=== PATIENT | female | born 1950 | race Caucasian/White ===

== ENCOUNTER 2019-12-06 18:55 | Observation (INO) ==
[2019-12-06] MEDS ORDERED: SODIUM CHLORIDE 0.9% 500 ML IV SCH (20:15)
--- NOTE | 2019-12-06 20:20 | Emergency Department Note ---
ED Visit Note I assisted Dr. Edwards in the care of this patient. Please see attending attestation. Alec Sarabia DO Resident, Family & Community Medicine, [facility] . Resident Activity Tracking Resident Involvement: Resident Care Provided Care Provided: Adult ED
[2019-12-06 20:49] LABS: Basophils # (auto) 0.01 K/uL (0-0.2); Basophils % (auto) 0.1 %; Eosinophils # (auto) 0.12 K/uL (0-0.5); Eosinophils % (auto) 1.8 %; Hemoglobin 15.2 g/dL (12.0-16.0); Immature Granulocytes # (auto) 0.01 K/uL (0.00-0.02); Immature Granulocytes % (auto) 0.1 %; Lymphocytes % (auto) 24.9 %; Mean Corpuscular Hemoglobin 31.3 pg (25-34); Mean Corpuscular Hgb Conc 33.8 g/dL (32-36); Mean Corpuscular Volume 92.6 fL (80-100); Mean Platelet Volume 10.6 fL (7.4-10.4); Monocytes # (auto) 0.49 K/uL (0.11-0.59); Monocytes % (auto) 7.2 %; Neutrophils # (auto) 4.51 K/uL (1.4-6.5); Neutrophils % (auto) 65.9 %; Platelet Count 195 K/uL (130-400); RDW Standard Deviation 47.6 fL (36.4-46.3); Red Blood Count 4.86 M/uL (4.2-5.4); White Blood Count 6.84 K/uL (4.8-10.8)
[2019-12-06 20:49] LABS: iSTAT Creatinine 1.2 mg/dl (0.6-1.3); iSTAT Hemoglobin 16.3 g/dl (12.0-16.0); iSTAT Ionized Calcium 1.17 mmol/l (1.12-1.32); iSTAT Potassium 3.9 mmol/L (3.3-5.0)
--- NOTE | 2019-12-06 20:59 | XRay Report ---
XR chest 1V portable HISTORY: 69 years-old Female Chest Pain acute atypical chest pain COMPARISON: None TECHNIQUE: Portable AP view of the chest FINDINGS: Cardiomediastinal and hilar silhouettes are within normal limits. Minimal linear left lung base atele ctasis/scarring. There is no pneumothorax, pleural effusion, airspace consolidation or overt pulmonar y edema. Bones of the chest appear grossly intact. Degenerative changes of the shoulders and spine. IMPRESSION: No acute process. ACT 112: Negative or not required by law. The above report was generated using voice recognition software. It may contain grammatical, syntax o r spelling errors. Electronically signed by: Prabhu Khan M.D. 12/06/2019 8:58 PM
[2019-12-06 21:01] LABS: Partial Thromboplastin Ratio 0.9; Partial Thromboplastin Time 25.2 Seconds (21.0-31.0)
[2019-12-06 21:06] LABS: Alanine Aminotransferase 41 U/L (12-78); Albumin Level 4.1 gm/dl (3.4-5.0); Aspartate Aminotransferase 33 U/L (15-37); BUN Creatinine Ratio 21.2 (10-20); Blood Urea Nitrogen 28 mg/dl (7-18); Calcium 9.4 mg/dl (8.5-10.1); Carbon Dioxide 24 mmol/L (21-32); Chloride 105 mmol/L (98-107); Creatinine Clr Calc Pharmacy 47.6 ml/min; Est GFR (African American) 47.4; Est GFR (Non-African American) 40.9; Glucose 122 mg/dl (70-99); Potassium 3.8 mmol/L (3.5-5.1); Sodium 139 mmol/L (136-145)
[2019-12-06 21:11] LABS: Alkaline Phosphatase 163 U/L (45-117); Bilirubin,Total 0.4 mg/dl (0.2-1); Globulin 4.1 gm/dl (2.5-4.0); Total Protein 8.2 gm/dl (6.4-8.2); Troponin I < 0.015 ng/ml (0-0.045)
[2019-12-06] MEDS ORDERED: OPTIRAY 320 125ml IV PRN (21:26)
--- NOTE | 2019-12-06 21:41 | CT Scan Report ---
CT head/brain wo con CLINICAL HISTORY: 69 years-old Female with visual disturbance. Acute visual disturbance TECHNIQUE: Multiple axial CT images of the head were obtained without contrast. A dose lowering tech nique was utilized adhering to the principles of ALARA. COMPARISON: CTA head and neck of same day. FINDINGS: No acute intracranial hemorrhage, midline shift, intracranial mass, hydrocephalus, territorial ischem ia or abnormal extra-axial collection. Senescent calcifications of the lentiform nuclei. Mild patchy white matter hypodensities suggest chronic microvascular ischemic changes. The calvarium is intact. The paranasal sinuses, mastoid air cells, and middle ear cavities are clear . IMPRESSION: No acute intracranial abnormality. ACT 112: Negative or not required by law. The above report was generated using voice recognition software. It may contain grammatical, syntax o r spelling errors. Electronically signed by: Prabhu Khan M.D. 12/06/2019 9:40 PM
--- NOTE | 2019-12-06 21:49 | CT Scan Report ---
CT angio neck with con, CT angio head w con CLINICAL HISTORY: 69 years-old Female with visual disturbance. Acute visual disturbance COMPARISON STUDY: Head CT of same day TECHNIQUE: Following the IV administration of 119 mL of Optiray 320, CT angiogram of the head and nec k was performed from the aortic arch to the skull base. Images are reviewed in the axial, sagittal, a nd coronal planes. 3-D MIPS images are created and assessed. IV contrast was administered without com plication. All measurements were calculated based on NASCET criteria. A dose lowering technique was utilized adhering to the principles of ALARA. CT DOSE: 1608.08 mGy.cm FINDINGS: The imaged opacified pulmonary arterial tree is unremarkable. Mild calcified plaque of the thoracic a ortic arch. Patency of the imaged bilateral subclavian arteries. The innominate and common carotid ar teries are patent. Mild mixed plaque of the carotid bulbs results in less than 50% luminal narrowing. The internal carotid arteries are patent. The middle and anterior cerebral arteries are patent. Dimi nutive right A1 segment is likely developmental. Anterior communicating artery appears normal. Patent and codominant vertebral arteries. There is approximately 50% luminal narrowing involving the proxim al cervical segments of the bilateral internal carotid arteries on image 137 series 6 which appear to be compressed from the adjacent musculature. There is tortuosity and kinking noted involving the dis jim left V2 segment, image 257 series 6 at the level of C2. Patent basilar artery. origin of th e right posterior cerebral artery. No aneurysm, dissection, high-grade stenosis or proximal branch oc clusion. Cerebral venous sinuses appear patent. No abnormal enhancement. Lung apices are clear without pneumothorax. Soft tissues are unremarkable. Minimal mucosal thickening of the right maxillary sinus. Multilevel degenerative changes of the cervical spine. IMPRESSION: 1. No aneurysm, dissection, high-grade stenosis or proximal branch occlusion. 2. Additional findings as above. ACT 112: Negative or not required by law. The above report was generated using voice recognition software. It may contain grammatical, syntax o r spelling errors. Electronically signed by: Prabhu Khan M.D. 12/06/2019 9:47 PM
--- NOTE | 2019-12-06 22:25 | Emergency Department Note ---
Impression & Plan Vision disturbance, Hypertensive urgency, Acute renal insufficiency, History of hyperlipidemia ED Provider Note NAME: DORA GONZALEZ AGE: 69 SEX: F ARRIVES VIA: Walk-In INFORMANT: Patient, ED PROVIDER(S): Gómez Edwards MD CHIEF COMPLAINT: Left eye flashes PLAN: Disposition: Admit MEDICAL DECISION MAKING: The patient is a pleasant 69-year-old woman with a past medical history of hypertension, hyperlipidemia who presents emergency department for complaints of flashes of light in her left eye field of vision which occurred approximately 1 hour prior to arrival without any history of similar episodes in the past. She does report a long history of seeing floaters but nothing ever like this. She reports she does follow with an flight attendant/inflight supervisor but has not been seen in the past 2 years. On arrival the patient is no acute distress, afebrile with elevated blood pressure 190s/90s and vital signs otherwise stable. On exam the patient has no focal neuro deficits. Visual covarrubias are intact. Per nursing acuity test slightly decreased acuity of the left eye field vision at 20/30 compared to right eye of 20/20. IOPS wnl at 12 bilaterally. Limited bedside ocular US demonstrates no overt retinal/vitreous detachment or vitreous hemorrhage. EKG without overt acute ischemia. Chest x-ray negative for acute process. CTA of the head and neck negative for CVA, ICH, severe narrowing or occlusion of large vessels. WBC, H/H and platelets within normal limits. Chemistry without acidosis. Creatinine 1.3 without prior values for comparison. BUN/creatinine> 20 consistent with the patient's clinically dry appearance. LFTs unremarkable. Troponin negative/undetectable. Given the persistence patient's persistent symptoms in the setting of elevated blood pressures suspicion for possible occipital stroke is raised. Reasonable to proceed with admission for further stroke evaluation and likely ophthalmology consultation. Patient was agreeable. Case was discussed with Dr. Rosenthal, [facility] hospitalist, who will evaluate the patient for admission. On behalf of admitting team, case was discussed with ophthalmology on-call, Dr. Stapleton. We agree there is no indication for emergent ophthalmic evaluation but recommends upon completion of stroke evaluation and discharge that the patient contact their office to be seen for complete ophthalmology evaluation. This patient was managed with the assistance of resident, Dr. Alec Sarabia. I discussed the case with the resident, examined the patient, and confirm the findings and plan as documented in this note. Triage Nursing notes reviewed and agree them. Prior medical records reviewed Vital Signs: reviewed and remarkable for no significant abnormalities Differential diagnosis: Infection, dehydration, metabolic abnormality, hypo/hyperglycemia, electrolyte disturbance, anemia, hypoxia, cardiac sources, intracerebral event, toxicologic, neurologic, as well as other pathologies. ER treatment provided: See below. Diagnostics interpreted by me: ECG: Normal sinus rhythm, 76 bpm, normal axis, no ectopy, no overt ST elevation or depression, QTC 450, QRS 90. Cardiac Monitoring: An order for continuous cardiac monitoring was placed and demonstrated sinus rhythm, 76 bpm, no ectopy. Laboratory studies: See below Imaging studies: XR chest 1V portable HISTORY: 69 years-old Female Chest Pain acute atypical chest pain COMPARISON: None TECHNIQUE: Portable AP view of the chest FINDINGS: Cardiomediastinal and hilar silhouettes are within normal limits. Minimal linear left lung base atelectasis/scarring. There is no pneumothorax, pleural effusion, airspace consolidation or overt pulmonary edema. Bones of the chest appear grossly intact. Degenerative changes of the shoulders and spine. IMPRESSION: No acute process. -- CT head/brain wo con CLINICAL HISTORY: 69 years-old Female with visual disturbance. Acute visual disturbance TECHNIQUE: Multiple axial CT images of the head were obtained without contrast. A dose lowering technique was utilized adhering to the principles of ALARA. COMPARISON: CTA head and neck of same day. FINDINGS: No acute intracranial hemorrhage, midline shift, intracranial mass, hydrocephalus, territorial ischemia or abnormal extra-axial collection. S enescent calcifications of the lentiform nuclei. Mild patchy white matter hypodensities suggest chronic microvascular ischemic changes. The calvarium is intact. The paranasal sinuses, mastoid air cells, and middle ear cavities are clear. IMPRESSION: No acute intracranial abnormality. ACT 112: Negative or not required by law. The above report was generated using voice recognition software. It may contain grammatical, syntax or spelling errors. -- CT angio neck with con, CT angio head w con CLINICAL HISTORY: 69 years-old Female with visual disturbance. Acute visual disturbance COMPARISON STUDY: Head CT of same day TECHNIQUE: Following the IV administration of 119 mL of Optiray 320, CT angiogram of the head and neck was performed from the aortic arch to the skull base. Images are reviewed in the axial, sagittal, and coronal planes. 3-D MIPS images are created and assessed. IV contrast was administered without complication. All measurements were calculated based on NASCET criteria. A dose lowering technique was utilized adhering to the principles of ALARA. CT DOSE: 1608.08 mGy.cm FINDINGS: The imaged opacified pulmonary arterial tree is unremarkable. Mild calcified plaque of the thoracic aortic arch. Patency of the imaged bilateral subclavian arteries. The innominate and common carotid arteries are patent. Mild mixed plaque of the carotid bulbs results in less than 50% luminal narrowing. The internal carotid arteries are patent. The middle and anterior cerebral arteries are patent. Diminutive right A1 segment is likely developmental. Anterior communicating artery appears normal. Patent and codominant vertebral arteries. There is approximately 50% luminal narrowing involving the proximal cervical segments of the bilateral internal carotid arteries on image 137 series 6 which appear to be compressed from the adjacent musculature. There is tortuosity and kinking noted involving the distal left V2 segment, image 257 series 6 at the level of C2. Patent basilar artery. origin of the right posterior cerebral artery. No aneurysm, dissection, high-grade stenosis or proximal branch occlusion. Cerebral venous sinuses appear patent. No abnormal enhancement. Lung apices are clear without pneumothorax. Soft tissues are unremarkable. Minimal mucosal thickening of the right maxillary sinus. Multilevel degenerative changes of the cervical spine. IMPRESSION: 1. No aneurysm, dissection, high-grade stenosis or proximal branch occlusion. 2. Additional findings as above. ACT 112: Negative or not required by law. Consultation(s): Case was discussed with Dr. Rosenthal, [facility] hospitalist, who will evaluate the patient for admission. HPI: The patient is a pleasant 69-year-old woman with a past medical history of hypertension, hyperlipidemia who presents emergency department for complaints of flashes of light in her left eye field of vision which occurred approximately 1 hour prior to arrival without any history of similar episodes in the past. She does report a long history of seeing floaters but nothing ever like this. She reports she does follow with an flight attendant/inflight supervisor but has not been seen in the past 2 years. ROS: See above HPI for pertinent positives & negatives. A total of 10 systems reviewed and were otherwise negative. PAST MEDICAL HISTORY:See Below PAST SURGICAL HISTORY:See Below FAMILY HISTORY:See Below SOCIAL HISTORY:See Below HOME MEDICATIONS:See Below ALLERGIES:See Below VITALS:See Below PHYSICAL EXAMINATION: GENERAL: Awake, alert, well-appearing, in no distress HENT: Normocephalic, atraumatic. Oropharynx with dry mucous membranes and otherwise unremarkable. EYES: Normal conjunctiva. Sclera non-icteric. EOMI. No nystamgus. PEARRL. NECK: Supple. No nuchal rigidity. FROM. No JVD. RESPIRATORY: Clear to auscultation. CARDIAC: Regular rate, normal rhythm. Extremities warm and well perfused. Pulses equal. ABDOMEN: Soft, non-distended. No tenderness to palpation. No rebound or guarding. No masses. RECTAL: Deferred. MUSCULOSKELETAL: Chest examination reveals no tenderness. The back is symmetrical on inspection without obvious abnormality. There is no CVA tenderness to palpation. No joint edema. LOWER EXTREMITIES: Calves are equal size bilaterally and non-tender. No edema. No discoloration. NEURO: Normal sensorium. No sensory or motor deficits noted. 5/5 strength and SILT x 4 extremities. Cerebellar function intact including [id number], alternating palms, [id number]. SKIN: No rash or jaundice noted. ED COURSE: Procedures: Limited Point of Care Ocular Ultrasound performed by me: Indication: Visual disturbance / Flashes Findings: Limited ocular ultrasound revealed no overt retinal/vitreous detachment or vitreous hemorrhage. Impression: No overt retinal/vitreous detachment or vitreous hemorrhage. Gómez Edwards MD Past Med/Surg History Medical History Hyperlipidemia Hypertension Social History Preferred Language: Greenlandic Communication Ability: Effective Calf Skinner Required: No Beliefs That Will Affect Care: None Current Living Situation: Family Other Information That Helps Us Care for You: No Feels Safe at Home: Yes Safety Concerns: Feels Safe At This Time Smoking Status: Never smoker Do You Dip or Chew Tobacco: No ; Hx Alcohol Use: Yes Hx Substance Use: No Allergies Allergies Allergy/AdvReac Type Severity Reaction Status Date / Time Penicillins Allergy Intermediate ITCHY FEET Verified 12/06/19 20:28 thimerosal Allergy Intermediate ITCHY Verified 12/06/19 20:28 EYES-CONTACT SOLUTION Home Meds Home Medications Medication Instructions Recorded Confirmed acetaminophen [Tylenol Extra 1,000 mg PO DIRECTED PRN 12/06/19 12/06/19 Strength] atorvastatin 20 mg PO DAILY 12/06/19 12/06/19 ibuprofen [Advil] 400 mg PO DIRECTED PRN 12/06/19 12/06/19 lisinopril 5 mg PO DAILY 12/06/19 12/06/19 magnesium 250 mg PO DAILY 12/06/19 12/06/19 multivitamin 1 tab PO DAILY 12/06/19 12/06/19 omega 1-yhj-icl-fish oil [[place]-3] 1 cap PO DAILY 12/06/19 12/06/19 Results & Data (ED) Vital Signs Vital Signs - 24 hr 12/06/19 18:56 12/06/19 20:44 12/06/19 20:50 Temperature 36.7 C Temperature Source Oral Pulse Rate 97 H 94 H Pulse Rate [Right Finger] 87 Pulse Rate from SpO2 Sensor Respiratory Rate 18 19 22 Respiratory Effort / Characteristics Non-Labored Respiratory Depth Normal Blood Pressure 195/96 H 161/86 H Blood Pressure [Left Arm] 161/86 H Blood Pressure Mean 129 113 Blood Pressure Mean [Left Arm] 111 Pulse Oximetry 97 98 Oxygen Delivery Method Room Air Sepsis Recent Fever Within 48 Hours No Sepsis New/Unexplained Change in Mental Status No Sepsis Action Taken by Nursing No Action Required 12/06/19 21:14 12/06/19 21:57 12/06/19 21:59 Temperature Temperature Source Pulse Rate 86 Pulse Rate [Right Finger] 80 Pulse Rate from SpO2 Sensor 83 Respiratory Rate 16 24 Respiratory Effort / Characteristics Respiratory Depth Blood Pressure 145/101 H 157/89 H Blood Pressure [Left Arm] 157/86 H Blood Pressure Mean 116 103 Blood Pressure Mean [Left Arm] 109 Pulse Oximetry 96 98 Oxygen Delivery Method Sepsis Recent Fever Within 48 Hours Sepsis New/Unexplained Change in Mental Status Sepsis Action Taken by Nursing 12/06/19 22:00 12/06/19 22:30 12/06/19 23:00 Temperature Temperature Source Pulse Rate Pulse Rate [Right Finger] Pulse Rate from SpO2 Sensor 77 86 80 Respiratory Rate Respiratory Effort / Characteristics Respiratory Depth Blood Pressure 164/92 H 193/74 H 155/81 H Blood Pressure [Left Arm] Blood Pressure Mean 121 122 116 Blood Pressure Mean [Left Arm] Pulse Oximetry 98 98 Oxygen Delivery Method Sepsis Recent Fever Within 48 Hours Sepsis New/Unexplained Change in Mental Status Sepsis Action Taken by Nursing Laboratory Data Result diagrams: 12/06/19 20:30 05/19/20 20:30 Lab Results 12/06/19 12/06/19 12/06/19 Range/Units 20:30 20:30 20:30 WBC 6.84 (4.8-10.8) K/uL RBC 4.86 (4.2-5.4) M/uL Hgb 15.2 (12.0-16.0) g/dL POC Hgb (12.0-16.0) g/dl Hct 45.0 (37-47) % POC Hct (37-47) % MCV 92.6 (80-100) fL MCH 31.3 (25-34) pg MCHC 33.8 (32-36) g/dL RDW Std Deviation 47.6 H (36.4-46.3) fL RDW Coeff of Jonathan 14.0 (11.5-14.5) % Plt Count 195 (130-400) K/uL MPV 10.6 H (7.4-10.4) fL Immature Gran % (Auto) 0.1 % Neut % (Auto) 65.9 % Lymph % (Auto) 24.9 % Hart % (Auto) 7.2 % Eos % (Auto) 1.8 % Baso % (Auto) 0.1 % Immature Gran # (Auto) 0.01 (0.00-0.02) K/uL Neut # (Auto) 4.51 (1.4-6.5) K/uL Lymph # (Auto) 1.70 (1.2-3.4) K/uL Hart # (Auto) 0.49 (0.11-0.59) K/uL Eos # (Auto) 0.12 (0-0.5) K/uL Baso # (Auto) 0.01 (0-0.2) K/uL PT 11.0 (9.0-12.0) Seconds INR 1.0 (0.9-1.1) APTT 25.2 (21.0-31.0) Seconds PTT Ratio 0.9 POC Sodium (135-144) mmol/L Sodium 139 (136-145) mmol/L POC Potassium (3.3-5.0) mmol/L Potassium 3.8 (3.5-5.1) mmol/L POC Chloride (101-112) mmol/L Chloride 105 (98-107) mmol/L Carbon Dioxide 24 (21-32) mmol/L POC Total CO2 (24-31) mmol/L Anion Gap 9.0 (3-11) POC Anion Gap (16-25) mmol/L POC BUN (7-18) mg/dl BUN 28 H (7-18) mg/dl Creatinine 1.31 H (0.6-1.2) mg/dl POC Creatinine (0.6-1.3) mg/dl Est Cr Clr Drug Dosing 47.6 ml/min Est GFR ( Amer) 47.4 Est GFR (Non-Af Amer) 40.9 BUN/Creatinine Ratio 21.2 H (10-20) Glucose 122 H (70-99) mg/dl POC Glucose (other) (70-99) mg/dl Calcium 9.4 (8.5-10.1) mg/dl POC Ioniz Calcium Prasanna (1.12-1.32) mmol/l Total Bilirubin 0.4 (0.2-1) mg/dl AST 33 (15-37) U/L ALT 41 (12-78) U/L Alkaline Phosphatase 163 H (45-117) U/L Troponin I < 0.015 (0-0.045) ng/ml Total Protein 8.2 (6.4-8.2) gm/dl Albumin 4.1 (3.4-5.0) gm/dl Globulin 4.1 H (2.5-4.0) gm/dl Albumin/Globulin Ratio 1.0 (0.9-2) 05/19/20 Range/Units 20:36 WBC (4.8-10.8) K/uL RBC (4.2-5.4) M/uL Hgb (12.0-16.0) g/dL POC Hgb 16.3 H (12.0-16.0) g/dl Hct (37-47) % POC Hct 48 H (37-47) % MCV (80-100) fL MCH (25-34) pg MCHC (32-36) g/dL RDW Std Deviation (36.4-46.3) fL RDW Coeff of Jonathan (11.5-14.5) % Plt Count (130-400) K/uL MPV (7.4-10.4) fL Immature Gran % (Auto) % Neut % (Auto) % Lymph % (Auto) % Hart % (Auto) % Eos % (Auto) % Baso % (Auto) % Immature Gran # (Auto) (0.00-0.02) K/uL Neut # (Auto) (1.4-6.5) K/uL Lymph # (Auto) (1.2-3.4) K/uL Hart # (Auto) (0.11-0.59) K/uL Eos # (Auto) (0-0.5) K/uL Baso # (Auto) (0-0.2) K/uL PT (9.0-12.0) Seconds INR (0.9-1.1) APTT (21.0-31.0) Seconds PTT Ratio POC Sodium 140 (135-144) mmol/L Sodium (136-145) mmol/L POC Potassium 3.9 (3.3-5.0) mmol/L Potassium (3.5-5.1) mmol/L POC Chloride 105 (101-112) mmol/L Chloride (98-107) mmol/L Carbon Dioxide (21-32) mmol/L POC Total CO2 24 (24-31) mmol/L Anion Gap (3-11) POC Anion Gap 16.0 (16-25) mmol/L POC BUN 29 H (7-18) mg/dl BUN (7-18) mg/dl Creatinine (0.6-1.2) mg/dl POC Creatinine 1.2 (0.6-1.3) mg/dl Est Cr Clr Drug Dosing ml/min Est GFR ( Amer) Est GFR (Non-Af Amer) BUN/Creatinine Ratio (10-20) Glucose (70-99) mg/dl POC Glucose (other) 127 H (70-99) mg/dl Calcium (8.5-10.1) mg/dl POC Ioniz Calcium Prasanna 1.17 (1.12-1.32) mmol/l Total Bilirubin (0.2-1) mg/dl AST (15-37) U/L ALT (12-78) U/L Alkaline Phosphatase (45-117) U/L Troponin I (0-0.045) ng/ml Total Protein (6.4-8.2) gm/dl Albumin (3.4-5.0) gm/dl Globulin (2.5-4.0) gm/dl Albumin/Globulin Ratio (0.9-2) Administered Medications Gadobutrol (Gadavist 65ml) 10.2 ml IV ONCE PRN PRN Reason: Interaction Checking Stop: 12/11/19 03:07 Last Admin: 12/07/19 02:52 Dose: 10.2 ml Documented by: [id number] Sodium Chloride (Nss 1000ml) 1,000 mls @ 80 mls/hr IV .[id number] Stop: 12/07/19 11:00 Last Admin: 12/07/19 03:26 Dose: 80 mls/hr Documented by: [id number] Discontinued Medications Aspirin (Ecotrin Ectab) 81 mg PO NOW STA Stop: 12/07/19 01:01 Last Admin: 12/07/19 01:36 Dose: 81 mg Documented by: [id number] Sodium Chloride (Nss) 500 mls @ 999 mls/hr IV .Q31M GILA Stop: 12/06/19 20:45 Last Infusion: 12/06/19 21:13 Dose: 0 mls/hr Documented by: [id number] Admin: 12/06/19 20:45 Dose: 999 mls/hr Documented by: [id number] Ioversol (Optiray 320 125ml) 119 ml IV ONCE PRN PRN Reason: Interaction Checking Stop: 12/10/19 21:25 Last Admin: 12/06/19 21:26 Dose: 119 ml Documented by: [id number] Blood Pressure Blood Pressure Findings: Elevated blood pressure Blood Pressure Disposition: further management by hospitalist Discharge Plan Visit Data *Final* Discharge Date/Time: 12/07/19 00:19 Chief Complaint: Visual Disturbance Stated Complaint: FLASHING LIGHTS IN LEFT EYE ED Provider: Gómez Edwards ED Midlevel Provider: Alec Sarabia Discharge Problem: Vision disturbance, Hypertensive urgency, Acute renal insufficiency, History of hyperlipidemia Patient Disposition: Admitted As Inpatient Discharge Instructions Interventions: ED Discharge Assessment Last Done: 12/07/19 00:19
--- NOTE | 2019-12-07 00:57 | History and Physical Report ---
DATE OF ADMISSION: 12/06/2019 CHIEF COMPLAINT: Visual disturbance. HISTORY OF PRESENT ILLNESS: A 69-year-old female with past medical history significant for hyperlipidemia, hypertension, GERD, who presents with some vision disturbance in the left eye. The patient says around 6:00 p.m., she noticed some flashes in the corner of the left eye when she moves her eye, but no loss of vision. That is the reason she came to the ER. Currently resting comfortably and hemodynamically stable so far. CT of the head and CTA of the head and neck were done which were unremarkable. As per the ER physician, bedside ultrasound of the eye did not show any retinal detachment. Resting comfortably and hemodynamically stable. Denies any headache, no dizziness, no earache, no runny nose, no sore throat, no cough, no difficulty swallowing. Appetite is okay. No chest pain or shortness of breath. No recent weight gain or weight loss. No abdominal pain. Normal bowel and bladder movements. No hematuria or burning micturition. No blood in stools or black stools. No rash. Sometimes uses a cane while walking. She lives with her aunt. ALLERGIES: PENICILLINS, THIMEROSAL. PAST MEDICAL HISTORY: As mentioned above. PAST SURGICAL HISTORY: Right breast lesion excision, colonoscopy, left breast lumpectomy, appendectomy. MEDICATIONS: The patient is on atorvastatin 20 mg p.o. daily, lisinopril 5 mg p.o. daily, omeprazole 20 mg p.o. daily, Advil p.r.n., magnesium 250 mg daily. FAMILY HISTORY: Significant for brother had colon cancer; father had CABG; mother has CHF, osteoporosis and sarcoidosis. SOCIAL HISTORY: Lives alone. No smoking, no alcohol, no drug use. REVIEW OF SYSTEMS: As per HPI. Rest of review of systems negative. PHYSICAL EXAMINATION: GENERAL: The patient is obese, not in acute distress. VITAL SIGNS: Temperature 36.7, pulse 80, respiratory rate 24, blood pressure 157/86, oxygen 98% on room air. HEENT: Pupils equal, round, and reactive to light. Extraocular muscles intact. No blurred vision. Able to count the fingers. NECK: No JVD, no neck masses. CARDIOVASCULAR: S1, S2 heard, regular rate and rhythm, no murmur, no gallop. RESPIRATORY SYSTEM: Normal AP diameter. No accessory muscle use. No wheezing, no crackles. ABDOMEN: Soft, bowel sounds present, nontender. No distention. CENTRAL NERVOUS SYSTEM: Cranial nerves II-XII grossly intact. Power 5/5 in all extremities. Coordination of movements normal. No pronator drift. Sensation is intact. EXTREMITIES: No edema, no erythema. LABORATORY DATA: WBC 6.8, hemoglobin 15.2, hematocrit 45, platelets 195. PT 11, INR 1, APTT 25.2. Sodium 139, potassium 3.8, chloride 105, bicarbonate 24, BUN 28, creatinine 1.31, serum glucose 122, calcium 9.4, total bilirubin 0.4, AST 33, ALT 41, alkaline phosphatase 163, troponin I less than 0.015. IMAGING DATA: Chest x-ray, no acute process seen. CT of the head, no acute intracranial abnormality seen. CT of the head and neck, no aneurysm, dissection, or high-grade stenosis. EKG: Normal sinus rhythm, rate of 76, no acute ST changes seen. ASSESSMENT AND PLAN: This is a 69-year-old female who presents with visual disturbance. 1. Visual disturbance, has some flashes on the corner of the left eye, they are getting better now. This happens when she moves her eyes. Currently stroke workup is negative with a CT of the head and CTA of the head and neck. We will give aspirin. The patient is on a statin. We will do full stroke workup with MRI scan and echocardiogram. ER physician also talked to ophthalmology. They advised for followup with them when she gets discharged from the hospital. Bedside echo done by the ER physician, there is no retinal detachment. 2. Hypertension. Continue lisinopril with holding parameters. 3. Hyperlipidemia. Continue statin. Follow the lipid profile. 4. Deep vein thrombosis prophylaxis, sequential compression devices for now. 5. Disposition: Observation in med/surg tele. Level 1 full code. Expect to discharge home and follow with the family doctor. [facility]
[2019-12-07] MEDS ORDERED: ONDANSETRON INJ 2 MG/ML 2 ML VIAL IV PRN (01:00)
[2019-12-07] MEDS ORDERED: ACETAMINOPHEN 325 MG TAB PO PRN (01:00)
[2019-12-07] MEDS ORDERED: ASPIRIN 81 MG ECTAB PO STA (01:00)
[2019-12-07] MEDS ORDERED: PHARMACIST DISCHARGE MED REC CONSULT PRN (01:00)
[2019-12-07] MEDS ORDERED: SODIUM CHLORIDE 0.9% 1000ML 1,000 ML IV SCH (01:00)
[2019-12-07] MEDS ORDERED: NITROGLYCERIN SL 0.4 MG/TAB TAB SL PRN (01:00)
[2019-12-07] MEDS ORDERED: GADOBUTROL 65ML VIAL IV PRN (03:08)
[2019-12-07 07:46] LABS: Basophils # (auto) 0.02 K/uL (0-0.2); Basophils % (auto) 0.3 %; Eosinophils % (auto) 1.7 %; Hematocrit (blood only) 41.9 % (37-47); Hemoglobin 13.8 g/dL (12.0-16.0); Immature Granulocytes # (auto) 0.01 K/uL (0.00-0.02); Immature Granulocytes % (auto) 0.2 %; Lymphocytes # (auto) 1.81 K/uL (1.2-3.4); Mean Corpuscular Hemoglobin 30.5 pg (25-34); Mean Corpuscular Hgb Conc 32.9 g/dL (32-36); Mean Corpuscular Volume 92.7 fL (80-100); Mean Platelet Volume 10.5 fL (7.4-10.4); Monocytes # (auto) 0.49 K/uL (0.11-0.59); Monocytes % (auto) 8.4 %; Neutrophils % (auto) 58.4 %; Platelet Count 193 K/uL (130-400); RDW Coefficient of Variation 13.9 % (11.5-14.5); RDW Standard Deviation 47.1 fL (36.4-46.3); Red Blood Count 4.52 M/uL (4.2-5.4); White Blood Count 5.83 K/uL (4.8-10.8)
[2019-12-07 08:25] LABS: BUN Creatinine Ratio 24.5 (10-20); Calcium 8.9 mg/dl (8.5-10.1); Creatinine Clr Calc Pharmacy 79.7 ml/min; Est GFR (African American) 88.6; Est GFR (Non-African American) 76.5; Potassium 3.9 mmol/L (3.5-5.1)
[2019-12-07 08:33] LABS: Estimated Average Glucose 131 mg/dl; Hemoglobin A1C 6.2 % (4.5-5.6)
--- NOTE | 2019-12-07 08:52 | Magnetic Resonance Report ---
MRI OF THE BRAIN WITHOUT AND WITH IV CONTRAST CLINICAL HISTORY: visual disturbance. flashes corner of left eye COMPARISON STUDY: Head CT and CTA of the head December 06, 2019. TECHNIQUE: Utilizing a 1.5 Alissa magnet and dedicated coil, multiplanar, multiecho imaging of the br ain was performed pre and postcontrast administration. IV administration of 10.2 mL of Gadavist cont rast was uneventful. FINDINGS: There are no foci of restricted diffusion to suggest acute infarct. No acute intracranial h emorrhage, midline shift or mass effect is present. Brain volume is normal. Basilar cisterns are jones nt. There are no extra axial collections. Flow-voids for the major intracranial vessels are present. There is no intracranial mass or pathologic enhancement. A few white matter T2 hyperintense foci sugg est mild small vessel disease. Calvarial signal is normal. Orbits are unremarkable. IMPRESSION: 1. No acute intracranial findings. 2. No intracranial mass or pathologic enhancement. ACT 112: Negative or not required by law. Electronically signed by: Braulio Oliveira M.D. 12/07/2019 8:51 AM
[2019-12-07] MEDS ORDERED: MULTIVITAMIN TAB PO SCH (09:00)
[2019-12-07] MEDS ORDERED: lisinopriL 5 MG TAB PO SCH (09:00)
[2019-12-07] MEDS ORDERED: MAGNESIUM OXIDE 400 MG TAB PO SCH (09:00)
[2019-12-07] MEDS ORDERED: ATORVASTATIN 20 MG TAB PO SCH (09:00)
[2019-12-07] MEDS ORDERED: ASPIRIN 81 MG ECTAB PO SCH (09:00)
--- NOTE | 2019-12-07 14:36 | Electrocardiogram Report ---
Test Reason : Blood Pressure : / mmHG Vent. Rate : 076 BPM Atrial Rate : 076 BPM P-R Int : 146 ms QRS Dur : 090 ms QT Int : 400 ms P-R-T Axes : 027 -03 007 degrees QTc Int : 450 ms Normal sinus rhythm Normal ECG No previous ECGs available Confirmed by Anish Valente ([id number]) on 12/07/2019 2:36:16 PM Referred By: REFERRED SELF Confirmed By:Laith Valente
--- NOTE | 2019-12-07 14:56 | Hospitalist Progress Note ---
Date of Service December 07, 2019 Assessment & Plan (1) Vision disturbance: Patient is a 69 yr female who presents with visual disturbance. Visual Disturbance DD: Ocular Migraine Cleve MRI: No acute intracranial findings. No intracranial mass or pathologic enhancement. Head CTA:No aneurysm, dissection, high-grade stenosis or proximal branch occlusion. Additional findings as above. Neck CTA:No aneurysm, dissection, high-grade stenosis or proximal branch occlusion. Additional findings as above. ECHO: Injection of contrast documented no intra-atrial shunt. The inter atrial septum is intact with no evidence of ASD. Ejection fraction is equal to 60 to 65%. No significant valvular pathology. The left ventricle systolic function is normal. Patient denies any headache, dizziness, focal numbness/weakness Advised no driving until cleared by ophthalmology. Appreciate ophthalmology, neurology input Discussed with on 12/07/19. Advised to follow-up with ophthalmology as outpatient. Hypertension Continue lisinopril Hyperlipidemia Continue statin DVT Px: SCDs for now Code Status Full Code Disposition: Expect to discharge home Admission and Anticipated Discharge Date Admission Date: December 06, 2019 Subjective Patient is seen and examined at bedside Reports transient light flashes on the left eye Denies any headache, dizziness, nausea, abdominal pain, chest pain, shortness of breath, weakness, numbness Offers no other complaints Discussed with ophthalmology and neurology today Review of Systems Review of Systems: All systems reviewed & are unremarkable except as noted in HPI & below Physical Exam Physical Exam: Physical Exam: Vitals signs as noted above General Appearance:Moderately built and nourished, no apparent distress Head: normocephalic, Atraumatic Eyes: normal inspection, EOMI, PERRL Neck: supple, Trachea midline Respiratory/Chest: Normal breath sounds, CTA, No accessory muscle use Cardiovascular: S1, S2, No murmur Abdomen/GI:Soft, Non tender, Bowel sounds present Extremities/Musculoskelatal:normal inspection, Trace B/L pedal edema Neurologic/Psych:AAOX3, grossly no focal neurological deficits Skin: normal color, warm Results & Data Results & Data ([facility]) Vital Signs (Past 12 Hours) Vital Signs Temp Pulse Pulse Resp BP BP Pulse Ox 12/07/19 11:42 36.9 C 69 18 122/78 93 12/07/19 07:54 36.6 C 71 18 128/75 95 12/07/19 07:34 67 12/07/19 03:14 36.7 C 81 21 162/83 H 97 Laboratory Results Short CBC 12/06/19 12/07/19 Range/Units 20:30 07:12 WBC 6.84 5.83 (4.8-10.8) K/uL Hgb 15.2 13.8 (12.0-16.0) g/dL Hct 45.0 41.9 (37-47) % Plt Count 195 193 (130-400) K/uL BMP 12/06/19 12/07/19 20:30 07:12 Sodium 139 142 Potassium 3.8 3.9 Chloride 105 109 H Carbon Dioxide 24 24 BUN 28 H 19 H Creatinine 1.31 H 0.78 D Glucose 122 H 107 H Calcium 9.4 8.9 Cardiac Enzymes 12/06/19 Range/Units 20:30 Troponin I < 0.015 (0-0.045) ng/ml Liver Function 12/06/19 Range/Units 20:30 Total Bilirubin 0.4 (0.2-1) mg/dl AST 33 (15-37) U/L ALT 41 (12-78) U/L Alkaline Phosphatase 163 H (45-117) U/L Albumin 4.1 (3.4-5.0) gm/dl
[2019-12-07] MEDS ORDERED: STROKE PATIENT DISCHARGE STA (16:19)
--- NOTE | 2019-12-07 16:20 | Discharge Summary ---
Date of Service December 07, 2019 Admission HPI Per Admitting Provider CHIEF COMPLAINT: Visual disturbance. HISTORY OF PRESENT ILLNESS: A 69-year-old female with past medical history significant for hyperlipidemia, hypertension, GERD, who presents with some vision disturbance in the left eye. The patient says around 6:00 p.m., she noticed some flashes in the corner of the left eye when she moves her eye, but no loss of vision. That is the reason she came to the ER. Currently resting comfortably and hemodynamically stable so far. CT of the head and CTA of the head and neck were done which were unremarkable. As per the ER physician, bedside ultrasound of the eye did not show any retinal detachment. Resting comfortably and hemodynamically stable. Denies any headache, no dizziness, no earache, no runny nose, no sore throat, no cough, no difficulty swallowing. Appetite is okay. No chest pain or shortness of breath. No recent weight gain or weight loss. No abdominal pain. Normal bowel and bladder movements. No hematuria or burning micturition. No blood in stools or black stools. No rash. Sometimes uses a can Admission Exam Per Admitting Provider PHYSICAL EXAMINATION: GENERAL: The patient is obese, not in acute distress. VITAL SIGNS: Temperature 36.7, pulse 80, respiratory rate 24, blood pressure 157/86, oxygen 98% on room air. HEENT: Pupils equal, round, and reactive to light. Extraocular muscles intact. No blurred vision. Able to count the fingers. NECK: No JVD, no neck masses. CARDIOVASCULAR: S1, S2 heard, regular rate and rhythm, no murmur, no gallop. RESPIRATORY SYSTEM: Normal AP diameter. No accessory muscle use. No wheezing, no crackles. ABDOMEN: Soft, bowel sounds present, nontender. No distention. CENTRAL NERVOUS SYSTEM: Cranial nerves II-XII grossly intact. Power 5/5 in all extremities. Coordination of movements normal. No pronator drift. Sensation is intact. EXTREMITIES: No edema, no erythema. Principal Diagnosis Visual Disturbance Discharge Data Allergies Allergy/AdvReac Type Severity Reaction Status Date / Time Penicillins Allergy Intermediate ITCHY FEET Verified 12/06/19 20:28 thimerosal Allergy Intermediate ITCHY Verified 12/06/19 20:28 EYES-CONTACT SOLUTION Consultations 12/06/19 22:15 ED Decision to Admit Stat 12/07/19 01:00 Consult Case Management - Discharge Planning Routine Consult Case Management - Discharge Planning Routine 12/07/19 08:00 Consult Neurology Routine Procedures Performed Cleve MRI: No acute intracranial findings. No intracranial mass or pathologic enhancement. Head CTA:No aneurysm, dissection, high-grade stenosis or proximal branch occlusion. Additional findings as above. Neck CTA:No aneurysm, dissection, high-grade stenosis or proximal branch occlusion. Additional findings as above. ECHO: Injection of contrast documented no intra-atrial shunt. The inter atrial septum is intact with no evidence of ASD. Ejection fraction is equal to 60 to 65%. No significant valvular pathology. The left ventricle systolic function is normal. Ordered Studies 12/06/19 19:53 US point of care ultrasound Stat 12/06/19 21:10 CT angio head w con Stat CT angio neck with con Stat CT head/brain wo con Stat 12/07/19 01:00 MR brain wo/w con Urgent Hospital Course (1) Vision disturbance: Patient is a 69 yr female who presents with visual disturbance. Visual Disturbance DD: Ocular Migraine/Vitreous degeneration Cleve MRI: No acute intracranial findings. No intracranial mass or pathologic enhancement. Head CTA:No aneurysm, dissection, high-grade stenosis or proximal branch occlusion. Additional findings as above. Neck CTA:No aneurysm, dissection, high-grade stenosis or proximal branch occlusion. Additional findings as above. ECHO: Injection of contrast documented no intra-atrial shunt. The inter atrial septum is intact with no evidence of ASD. Ejection fraction is equal to 60 to 65%. No significant valvular pathology. The left ventricle systolic function is normal. Patient denies any headache, dizziness, focal numbness/weakness Advised no driving until cleared by ophthalmology. Appreciate ophthalmology, neurology input Discussed with on 12/07/19. Advised to follow-up with ophthalmology as outpatient. 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 Non-emergency contact: Primary Care Provider and Corn Chip Maker Call non-emergency contact if: you have any medication questions, your symptoms worsen, your pain is not controlled, your pain is worsening, your pain is unusual for you, your pain is concerning for you and you have a fever Follow-up/Referrals: Jovana Alaniz DO [Primary Care Provider] - Diet: Heart Healthy Addtl Attending Provider Instructions: Follow-up with your primary care physician Dr. Jovana Alaniz on December 16, 2019 at 11:20AM at [facility] Follow-up with your notching press operator as advised No driving is permitted until cleared by her notching press operator. Seek immediate medical attention if your symptoms reoccur or worsen Pending Studies at Discharge: No Stand-Alone Forms: My [facility] RedT, Smoking Cessation Medications and DC Order Prescriptions: Continued multivitamin Tablet 1 tab PO DAILY RF: 0 atorvastatin 20 mg tablet 20 mg PO DAILY RF: 0 acetaminophen [Tylenol Extra Strength] 500 mg Tablet 1,000 mg PO DIRECTED PRN (Reason: Pain) RF: 0 ibuprofen [Advil] 200 mg Tablet 400 mg PO DIRECTED PRN (Reason: Pain) RF: 0 magnesium 250 mg Tablet 250 mg PO DAILY RF: 0 lisinopril 5 mg tablet 5 mg PO DAILY RF: 0 [place]-3 350 mg-235 mg- 90 mg-597 mg Capsule,Delayed Release(Dr/Ec) 1 cap PO DAILY RF: 0 Discharge Orders: Discharge Order (Routine); Ordered 12/07/19 Ordered By: Larry Sol/Other Patient Handouts: Prediabetes, Stroke Sx, A1C Admission Data Admit Date/Time: 12/06/19 23:20 Attending Provider: Larry Harden Admit Provider: Elijah Rosenthal Primary Care Provider: oJvana Alaniz Other Providers: Elijah Rosenthal ; Samantha Joshi ; Clemente Seals Kathleen ; Sandeep Bhatt Other Interventions: Discharge Summary Assessment (RN) Last Done: 12/07/19 16:30 DC Date/Time DO NOT enter until pt leaves facility: 12/07/19 17:23
--- NOTE | 2019-12-07 17:34 | Consultation Report ---
DATE OF CONSULTATION: 12/07/2019 REASON FOR CONSULTATION: Visual phenomenon. HISTORY OF PRESENT ILLNESS: The patient is a 69-year-old right-handed female with hypertension and hyperlipidemia. On this background, yesterday she was in her usual state of health. In the evening while on the phone, she noted with eye movement, a brief flash, almost crescentic, in the left eye only that would last a second and would resolve. Would reoccur with eye movement. It was not noted to be in the right eye. There was no change in visual acuity, no blind spots, no eye pain and no headache. The patient does have a history of migraine in the past, but has never had scintillating visual phenomenon. There were no other neurologic symptoms such as diplopia, dysarthria, unilateral weakness or numbness. She had not had any head or neck injury. No fevers, chills, sweats or weight loss, or jaw claudication. She has not recently been ill. No shortness of breath or cough. In the Emergency Room, an ocular ultrasound showed no overt retinal or vitreous detachment or vitreous hemorrhage. A CT of the head was unremarkable. There were mild patchy white matter hypodensities suggestive of chronic microvascular changes. MRI of the brain showed a few white matter T2 hyperintensities. CTA of the head and neck showed no aneurysm, dissection or high-grade stenosis of proximal branch occlusion. There was mild mixed plaque in the bilateral carotid bulbs, resulting in less than 50% luminal narrowing. There is approximately 50% luminal narrowing involving the proximal cervical segments of the bilateral internal carotid arteries, which appeared to be compressed from the adjacent musculature. Sed rate was 11. Visual acuity was checked in the Emergency Room and was 20/20 in the right eye and 20/30 in the left eye. 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 PAST MEDICAL HISTORY: As above. No history of diabetes, CA, stroke, cancer, or DVT. ALLERGIES: PENICILLIN AND THIMEROSAL. SHE HAS HAD NOSE BLEEDING WITH ASPIRIN AND ADVIL. PAST SURGICAL HISTORY: Breast lump excision, colonoscopy, appendectomy. HOME MEDICATIONS: Atorvastatin, lisinopril, omeprazole, Advil p.r.n. and magnesium. FAMILY HISTORY: Grandmothers may have had stroke in their 70s. SOCIAL HISTORY: Nonsmoker, nondrinker. 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 REVIEW OF SYSTEMS: As above. LABORATORY WORK: Notable for hemoglobin of 16.3, platelet count of 195. PT, PTT normal. Chemistry profile notable for BUN and creatinine over 28/1.3 on admission. Nonfasting glucose was 122. PHYSICAL EXAMINATION: VITAL SIGNS: 162/83, 69, 18, 36.9, 93%. GENERAL: The patient is awake and alert, normal speech and language. Affect is appropriate. NECK: There are no carotid bruits. HEART: No heart murmurs. Heart is regular rate and rhythm. NEUROLOGIC: Pupils are myotic but reactive. I had difficulty visualizing the optic nerves. No red desaturation is noted and no afferent pupillary defect is noted. Grossly, I saw no abnormalities. There were normal visual covarrubias to confrontation. Normal motility, normal facial sensation and symmetry. Tongue was midline. Motor 5/5, no drift. Normal rapid alternating movements. Symmetric reflexes. Downgoing toes. [id number] and [id number] are normal. Sensation is intact to light touch and temperature bilaterally. Gait is orthopedic. IMPRESSION: Monocular flashing with eye movement. This is suspicious either for vitreous degeneration. I personally could not exclude a retinal detachment. This is not migrainous. This is not ischemic. This is not retinal ischemia. This is not a transient ischemic attack. PLAN: Ophthalmology should see the patient. No further neurologic workup needs to be performed. The patient does not need neurologic followup. [facility]
== END 2019-12-07 17:23 | disposition home or self-care (01) ==
LOC: 2N 18:55 → ED 18:55 → SUATTDRO 23:20 → 2N 12-07 00:19